=== PATIENT | female | born 1985 | race Caucasian/White ===

== ENCOUNTER 2020-04-21 12:00 | Outpatient (CLI) | payer MEDICAID | END 2020-04-21 23:59 | disposition home or self-care (01) | LOC: CARD DIAG 12:00 | PROVIDERS: ATTEND Nurse Practitioner Obstetrics & Gynecology | DX: R00.0 Tachycardia, unspecified (principal) | CPT/HCPCS: 93005 ==

== ENCOUNTER 2024-04-24 08:06 | Emergency (ER) | payer MEDICAID ==
[~2024-04-24] VITALS: Ht 152.4 cm; Wt 97.1 kg
[2024-04-24] MEDS ORDERED: BENZ-38 PO (09:38)
[2024-04-24] MEDS ORDERED: ALBU8HFA INH (09:38)
[2024-04-24] MEDS ORDERED: PRED20TA PO (09:38)
[2024-04-24] MEDS ORDERED: AZIT250T83 PO (09:39)
[2024-04-24 09:43] VITALS: BP 137/78; PULSE 108; RESP 16; TEMP 99.3; O2SAT 98
== END 2024-04-24 09:45 | disposition home or self-care (01) ==
LOC: ER 08:07
DX: J22 Unspecified acute lower respiratory infection (principal); Z88.1 Allergy status to other antibiotic agents; Z88.2 Allergy status to sulfonamides
CPT/HCPCS: 71045; 99283